=== PATIENT | male | born 1960 ===

== ENCOUNTER 2019-07-25 16:20 | Emergency (ER) | payer OTHER ==
[~2019-07-25] VITALS: Ht 185.4 cm; Wt 111.1 kg
[2019-07-25] MEDS ORDERED: [UNRECOGNIZED DRUG - OTHER] (17:15)
[2019-07-25] MEDS ORDERED: ASPIRIN EC81 MG (17:16)
== END 2019-07-25 23:06 | disposition home or self-care (01) ==
LOC: ER 16:20
DX: R07.89 Other chest pain (principal); E86.0 Dehydration; R06.02 Shortness of breath; G40.89 Other seizures
CPT/HCPCS: 70450; 71260; 93005; Q9965